=== PATIENT | female | born 1985 | race Two or more races ===

== ENCOUNTER 2019-09-09 15:15 | Emergency (ER) | payer SELFPAY ==
[~2019-09-09] VITALS: Ht 162.6 cm; Wt 70.0 kg
[2019-09-09 15:24] VITALS: BP 135/79
[2019-09-09 16:44] LABS: BASOPHILS % 0.7 % (0.0-2.0); EOSINOPHILS % 0.9 % (0.0-5.0); HEMATOCRIT. 36.2 % (36.0-48.0); HEMOGLOBIN. 12.1 g/dL (12.0-16.0); LYMPHOCYTES % 31.3 % (20.0-50.0); MEAN CORPUSCULAR HEMOGLOBIN 30.6 pg (28.0-32.0); MEAN CORPUSCULAR VOLUME 91.8 fL (81.0-99.0); MEAN PLATELET VOLUME 7.2 fl (7.4-10.4); NEUTROPHILS % 56.1 % (40.0-76.0); PLATELET 286 x1000/uL (130-400); RED BLOOD CELL COUNT 3.94 mill/uL (4.2-5.4); RED CELL DISTRIBUTION WIDTH 15.1 % (11.6-14.6)
[2019-09-09 16:48] LABS: CHLORIDE 110 mEq/L (98-107)
[2019-09-09 16:52] LABS: ETHANOL BLOOD 174 mg/dL
== END 2019-09-09 19:43 | disposition left against medical advice (07) ==
LOC: ER 15:15
DX: R00.8 Other abnormalities of heart beat (principal); T43.625A Adverse effect of amphetamines, initial encounter; Y92.9 Unspecified place or not applicable; F32.9 Major depressive disorder, single episode, unspecified
CPT/HCPCS: 36415; 80320; 93005; 99284; G0480

== ENCOUNTER 2019-09-11 16:56 | Emergency (ER) | payer SELFPAY ==
[~2019-09-11] VITALS: Ht 162.6 cm; Wt 64.0 kg
[2019-09-11 19:12] LABS: CHLORIDE 108 mEq/L (98-107)
[2019-09-11 19:14] LABS: BASOPHILS % 0.4 % (0.0-2.0); EOSINOPHILS % 0.7 % (0.0-5.0); HEMATOCRIT. 35.2 % (36.0-48.0); HEMOGLOBIN. 11.7 g/dL (12.0-16.0); MEAN CORPUSCULAR HEMOGLOBIN 30.6 pg (28.0-32.0); MEAN PLATELET VOLUME 7.2 fl (7.4-10.4); MONOCYTES % 7.3 % (2.0-8.0); NEUTROPHILS % 73.6 % (40.0-76.0); PLATELET 254 x1000/uL (130-400); RED BLOOD CELL COUNT 3.82 mill/uL (4.2-5.4); RED CELL DISTRIBUTION WIDTH 15.4 % (11.6-14.6)
[2019-09-11] MEDS ORDERED: HALOPERIDOL LACTATE 5MG/ML VIAL IM STA (19:38)
[2019-09-11] MEDS ORDERED: LORAZEPAM 2MG/ML CPJ IM STA (19:38)
[2019-09-11 20:37] LABS: HCG SCREEN NEGATIVE
[2019-09-11] MEDS ORDERED: IOHEXOL-300 100 ML BOTTLE ONE (23:31)
[2019-09-12 02:15] VITALS: BP 101/63
[2019-09-12] MEDS ORDERED: MORPHINE SULFATE 2 MG/ML CPJ (NOT FOR IM USE) IV ONE (02:15)
== END 2019-09-12 02:16 | disposition short-term general hospital (02) ==
LOC: ER 17:04
DX: S82.102A Unspecified fracture of upper end of left tibia, initial encounter for closed fracture (principal); S82.402A Unspecified fracture of shaft of left fibula, initial encounter for closed fracture; F32.9 Major depressive disorder, single episode, unspecified; F15.10 Other stimulant abuse, uncomplicated; R40.4 Transient alteration of awareness; V09.9XXA Pedestrian injured in unspecified transport accident, initial encounter; Y93.89 Activity, other specified; Y92.89 Other specified places as the place of occurrence of the external cause; Y99.8 Other external cause status
CPT/HCPCS: 36415; 70450; 71260; 72125; 73502; 73552; 73560; 73590; 74177; 80053; 84703; 85025; 96372; 96374; 99285; J1630; J2060; J2270; Q9967